=== PATIENT | male | born 1960 | race Caucasian/White ===

== ENCOUNTER → 2018-05-19 | Outpatient (CLI) | payer OTHER ==
[~2018-05-19] VITALS: Ht 182.9 cm; Wt 104.3 kg
[~2018-05-19] MED LIST: IBUPROFEN 800800 M1 PO; LIPITOR 20 MG T20 M1 PO; METOPROLOL SUCC50 MG PO; NEURONTIN 300300 M1 PO; TRAZODONE HCL100 MG PO; ZYRTEC10 M4 PO
--- NOTE | ~2018-05-19 | P ---
[facility] [place] [address] PROCEDURE REPORT Name: NORMA PRIETO Room #: [facility]utter [facility] HospitalQu[facility] [id number] Admission: 05/19/18 ������������������ Attend Phys: Torres Cisse MD Discharge: ������������������ Date of : 58 Report #: [id number] THIS REPORT FOR: //name// CC: FAM unknown Torres TOLEDO PREOPERATIVE DIAGNOSIS: Supraventricular tachycardia. POSTOPERATIVE DIAGNOSIS: Typical atrioventricular nilo reentrant tachycardia. PROCEDURES PERFORMED: 1. SVT ablation, CPT code 99036. 2. EP left atrial pacing and recording, CPT code 06566. 3. Program stimulation and pacing after intravenous drug infusion, CPT code 73743. 4. 3D mapping, CPT code 03505. ANESTHESIA: The patient underwent MAC anesthesia with no anesthesia-related complications. DESCRIPTION OF PROCEDURE: The patient underwent informed consent. We discussed the details of the procedure including the risks, which include but not limited to bleeding, vascular damage, stroke, DC as well as damage to the red cliff conduction system requiring permanent pacemaker. The patient understood these risks and is willing to proceed. The patient was brought to the EP laboratory in fasting and sedated state, prepped and draped in a sterile fashion. I then injected lidocaine to the bilateral groin regions and obtained access to the bilateral femoral veins x 4. In the right femoral vein, I placed an 8 and a 6-Ghanaian short sheath. In the left femoral vein, I placed a 7 and a 6-Gh[place]ian short sheath. Under fluoroscopy, I placed a decapolar catheter easily in the coronary sinus and 3 quadripolar catheters in the HRA, His, and RV positions. Next, the EP study was performed. Next, atrial pacing was performed from both the right and left atrium. At baseline, the patient was in sinus rhythm with sinus cycle length of 200 msec, QRS duration 95 msec, QT interval 390 msec, AH interval 110 msec, HV interval 45 msec. Atrial burst pacing was performed and AV block was noted at 340 msec. Atrial ERP was noted at 250 msec at a [address] cycle length. With additional atrial burst pacing, the patient went into SVT with a tachycardia cycle length of 420 msec and the septal VA time of 50 msec. Ventricular entrainment was performed. There was evidence of a VAHV response consistent with typical AV nilo reentrant tachycardia. Next, the tachycardia was terminated and VA block was noted at 420 msec. VA ERP was noted at 380 msec at a [address] cycle length with evidence of midline and decremental VA conduction. Isoproterenol infusion was initiated at 1 mcg per minute and the SVT was easily induced and entrained. Isoproterenol was turned off. Next, ablation was [facility] [address] [place] [address] PROCEDURE REPORT Name: NORMA PRIETO Room #: REG [place] Peng#: [id number] Admission: 05/19/18 ������������������ Attend Phys: Torres Cisse MD Discharge: ������������������ Date of : 58 Report #: [id number] performed at 50 yepez and 55 degrees. A total of 5 ablation lesions were performed. There were very few junctionals noted during these lesions. There was never any compromise to AV nilo conduction. Ablation was a little challenging due to his deep breathing, which was causing some catheter motion; however, given the several good ablation lesions at sites that were consistent with a slow pathway, I decided to do post-procedural testing. Post-procedure, we turned the patient back on isoproterenol immediately. AV block was noted at 360 msec. There was no longer a long AH interval with evidence of a slow pathway with atrial burst pacing. Atrial ERP was noted at 220 msec at [address] cycle length[address] I increased his isoproterenol to 2 mcg per minute and continued testing. AV block was noted at 310 msec and AV nilo ERP was noted at 230 msec at a [address] cycle length. There were no echoes and there were no junctional beats noted. Isoproterenol was turned off. We continued testing and could no longer induce SVT. Post-ablation, he was in sinus rhythm with sinus cycle length of 700 msec, ME interval 200 msec, QRS duration 90 msec, QT interval 360 msec. As such, all catheters and sheaths were pulled. Hemostasis was obtained. The patient awoke neurologically and hemodynamically intact. No complications and no significant bleeding. CONCLUSIONS: 1. Successful ablation of typical AV nilo reentrant tachycardia. 2. Normal SA nilo function. 3. Normal AV nilo function. 4. Normal His-Purkinje function. 5. No other inducible arrhythmias on or off isoproterenol. ��������������������������������������������� ���������������������������������������� By: ��������������������������������������������� [id number] Torres Cisse MD /nt
[2018-05-19 07:09] LABS: ABSOLUTE NEUTROPHILS 8.2 thou/uL (1.4-8.2); BASOPHILS 0.3 % (0.0-2.0); EOSINOPHILS 1.7 % (0.0-3.0); HEMATOCRIT 49.5 % (42.0-52.0); HEMOGLOBIN 17.5 gm/dL (14.0-18.0); LYMPHOCYTES 22.6 % (24.0-44.0); MCH 32.5 pg (26.0-34.0); MCHC 35.3 g/dL (28.0-37.0); MCV 91.8 fL (80.0-100.0); MONOCYTES 5.6 % (1.0-8.0); PLATELET COUNT 161 thou/uL (150-400); POLYS 69.8 % (36.0-66.0); RBC 5.39 mil/uL (4.50-6.00); RDW 13.4 % (10.5-14.5); WBC 11.8 thou/uL (4.0-11.0)
[2018-05-19 07:23] LABS: APTT 27.8 Seconds (24.5-32.8); PROTIME 10.5 Seconds (9.3-11.4)
[2018-05-19 07:29] VITALS: BP 132/65
[2018-05-19 07:32] LABS: CALCIUM 9.5 mg/dL (8.5-10.1); CREATININE 1.4 mg/dL (0.7-1.3); POTASSIUM 4.2 mmol/L (3.5-5.1)
[2018-05-19 07:36] LABS: ALBUMIN 4.3 g/dL (3.4-5.0); TOTAL BILIRUBIN 1.1 mg/dL (<0.1-1.0); TOTAL PROTEIN 7.9 g/dL (6.4-8.2)
== END | disposition home or self-care (01) ==
LOC: CATH 06:38
PROVIDERS: Internal Medicine Cardiovascular Disease
DX: I47.1 Supraventricular tachycardia (principal); I10 Essential (primary) hypertension; E78.5 Hyperlipidemia, unspecified; I25.2 Old myocardial infarction; I25.10 Atherosclerotic heart disease of native coronary artery without angina pectoris; I73.9 Peripheral vascular disease, unspecified; E66.09 Other obesity due to excess calories; J44.9 Chronic obstructive pulmonary disease, unspecified; F17.210 Nicotine dependence, cigarettes, uncomplicated; F41.9 Anxiety disorder, unspecified; Z98.890 Other specified postprocedural states; Z79.899 Other long term (current) drug therapy; Z88.0 Allergy status to penicillin; Z88.8 Allergy status to other drugs, medicaments and biological substances; Z79.01 Long term (current) use of anticoagulants
CPT/HCPCS: 62110; 62900; 70005